=== PATIENT | female | born 1980 | race Caucasian/White ===

== ENCOUNTER 2017-02-12 18:08 | Emergency (ER) | payer OTHER ==
[2017-02-12] MEDS ORDERED: HYDROcodone/ACETAMIN 5-325 MG* 1 TAB PO ONE ×2 (20:02→20:50)
[2017-02-12 20:07] VITALS: BP 142/92
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
== END 2017-02-12 21:30 | disposition home or self-care (01) ==
LOC: UCEAST 18:08
DX: T23.102A Burn of first degree of left hand, unspecified site, initial encounter (principal); X12.XXXA Contact with other hot fluids, initial encounter; Y93.G3 Activity, cooking and baking; Y92.9 Unspecified place or not applicable; R03.0 Elevated blood-pressure reading, without diagnosis of hypertension; Z88.6 Allergy status to analgesic agent; F12.90 Cannabis use, unspecified, uncomplicated; F17.210 Nicotine dependence, cigarettes, uncomplicated
CPT/HCPCS: 99212; G0463

== ENCOUNTER 2018-02-28 12:02 | Emergency (ER) | payer OTHER ==
[2018-02-28] MEDS ORDERED: Ketorolac INJ* 30 MG/ML 1 ML VIAL IV PUSH ONE (12:34)
[2018-02-28] MEDS ORDERED: NS 0.9% 1000 ML* 1,000 ML IV ONE (12:34)
[2018-02-28 13:04] LABS: ABS Basophils 0 10^3/ul (0-0.2); ABS Eosinophils 0 10^3/ul (0-0.6); ABS Lymphocytes 0.4 10^3/ul (1.0-4.8); ABS Monocytes 0.5 10^3/ul (0-0.8); ABS Neutrophils 4.6 10^3/ul (1.5-7.7); ABS Nucleated RBC 0 10^3/ul; Eosinophil % 0.8 % (0-6); Hematocrit 41 % (35-47); Lymphocyte % 6.4 % (25-47); Mean Corpuscular HGB Conc 35 g/dl (31-36); Mean Corpuscular Hemoglobin 30 pg (27-31); Mean Corpuscular Volume 88 fL (80-97); Mean Platelet Volume 8.9 um3 (7.4-10.4); Nucleated Red Blood Cells % 0; Platelet Count 259 10^3/ul (150-450); Red Blood Count 4.61 10^6/ul (4.0-5.4); Red Cell Distribution Width 13 % (10.5-15); White Blood Count 5.5 10^3/ul (3.5-10.8)
[2018-02-28 13:29] LABS: EGFR Non-African American 96.8 (>60)
--- NOTE | 2018-02-28 13:29 | ED ---
GI/ HPI - HPI Summary HPI Summary: 37 year feel presents with a month's worth of right sided abdominal pain. She admits to diarrhea. She admits occasional nausea. She denies any vomiting. She denies any pain with urination. She has been having intermittent spotting for the past month. She states she had a history of MS. She states her primary had an ultrasound done transvaginal and gallbladder. She states she saw dr barnes as gallstones seen on u/s but dr barnes felt that gallstones r not causing her symptoms. States she has an apt on Sunday with ob as u/s showed fibroids. She states her vaginal discharge is dark brown and sometimes gel like. She states that she normally doesn't have pain at baseline or sensation but when she has pain it is intense. She denies any flank pain. She denies any fevers. She denies any chest pain or shortness breath. She has been taking Tylenol and ibuprofen for her symptoms. Has had a previous C- sections. She states the pain is more intense over the past couple days. - History of Current Complaint Chief Complaint: EDAbdPain Time Seen by Provider: 02/28/18 12:25 Stated Complaint: ABD PAIN Pain Intensity: 6 - Allergy/Home Medications Allergies/Adverse Reactions: Allergies Allergy/AdvReac Type Severity Reaction Status Date / Time aspirin Allergy See Comment Verified 02/28/18 12:34 Home Medications: Home Medications FLUoxetine CAP* [PROzac CAP*] 40 mg PO DAILY 02/28/18 [History Confirmed ] Fingolimod (NF) [Gilenya] 0.5 mg PO DAILY 02/28/18 [History Confirmed 02/28/18] Gabapentin CAP(*) [Neurontin 300 CAP(*)] 900 mg PO BEDTIME 02/28/18 [History Confirmed 02/28/18] Multivitamins/Minerals TAB* [Theragran/minerals TAB*] 1 tab PO DAILY 02/28/18 [ History Confirmed 02/28/18] Topiramate TAB(*) [Topamax 100 mg tab] 100 mg PO BID 02/28/18 [History Confirmed 02/28/18] tiZANidine TAB* [Zanaflex TAB*] 4 mg PO BEDTIME 02/28/18 [History Confirmed 11/05] PMH/Surg Hx/FS Hx/Imm Hx Endocrine/Hematology History: Denies: Hx Anticoagulant Therapy, Hx Diabetes Cardiovascular History: Denies: Hx Hypertension, Hx Pacemaker/ICD Respiratory History: Denies: Hx Asthma History: Denies: Hx Dialysis, Hx Renal Disease Musculoskeletal History: Reports: Other Musculoskeletal History - MS Sensory History: Reports: Hx Contacts or Glasses - DISTANT GLASSES Denies: Hx Hearing Aid Opthamlomology History: Reports: Hx Contacts or Glasses - DISTANT GLASSES Neurological History: Reports: Hx Migraine, Other Neuro Impairments/Disorders - MS Psychiatric History: Denies: Hx Panic Disorder - Surgical History Surgery Procedure, Year, and Place: TWO C-SECTIONS; TUBAL LIGATION; TONSILS A CHILD; TUBES IN EARS CHILD; 03/31/15 UTERINE ABLATION. LASIK EYE SURGERY FOR CORRECTIVE VISION Hx Anesthesia Reactions: No Infectious Disease History: No Infectious Disease History: Denies: Traveled Outside the [place] in Last 30 Days - Family History Known Family History: Negative: Diabetes - Social History Alcohol Use: Occasionally Substance Use Type: Reports: None Substance Use Comment - Amount & Last Used: medical marijuana program for [place] Smoking Status (MU): Former Smoker Type: Cigarettes Amount Used/How Often: 2-3 CIGARETTE PER DAY Length of Time of Smoking/Using Tobacco: 5 YEARS Have You Smoked in the Last Year: No Review of Systems Negative: Fever Negative: Chest Pain Negative: Shortness Of Breath Positive: Abdominal Pain, Diarrhea, Nausea. Negative: Vomiting All Other Systems Reviewed And Are Negative: Yes Physical Exam Triage Information Reviewed: Yes Vital Signs On Initial Exam: Initial Vitals Temp Pulse Resp BP Pulse Ox 98.6 F 66 20 155/83 100 02/28/18 12:09 02/28/18 12:09 02/28/18 12:09 02/28/18 12:09 02/28/18 12:09 Vital Signs Reviewed: Yes Appearance: Positive: Well-Appearing Skin: Positive: Warm, Dry Head/Face: Positive: Normal Head/Face Inspection Eyes: Positive: Normal, Conjunctiva Clear Respiratory/Lung Sounds: Positive: Clear to Auscultation, Breath Sounds Present Cardiovascular: Positive: Normal, RRR Abdomen Description: Positive: Soft, Other: - tenderness in RUQ and RLQ Bowel Sounds: Positive: Present Musculoskeletal: Positive: Normal Neurological: Positive: Normal Psychiatric: Positive: Normal Diagnostics - Vital Signs Vital Signs Temp Pulse Resp BP Pulse Ox 02/28/18 13:00 56 133/71 100 02/28/18 12:49 57 100 02/28/18 12:47 127/76 02/28/18 12:09 98.6 F 66 20 155/83 100 - Laboratory Lab Results: Lab Results 02/28/18 Range/Units 12:50 WBC 5.5 (3.5-10.8) 10^3/ul RBC 4.61 (4.0-5.4) 10^6/ul Hgb 14.0 (12.0-16.0) g/dl Hct 41 (35-47) % MCV 88 (80-97) fL MCH 30 (27-31) pg MCHC 35 (31-36) g/dl RDW 13 (10.5-15) % Plt Count 259 (150-450) 10^3/ul MPV 8.9 (7.4-10.4) um3 Neut % (Auto) 83.1 H (38-83) % Lymph % (Auto) 6.4 L (25-47) % Kings % (Auto) 9.2 H (0-7) % Eos % (Auto) 0.8 (0-6) % Baso % (Auto) 0.5 (0-2) % Absolute Neuts (auto) 4.6 (1.5-7.7) 10^3/ul Absolute Lymphs (auto) 0.4 L (1.0-4.8) 10^3/ul Absolute Monos (auto) 0.5 (0-0.8) 10^3/ul Absolute Eos (auto) 0 (0-0.6) 10^3/ul Absolute Basos (auto) 0 (0-0.2) 10^3/ul Absolute Nucleated RBC 0 10^3/ul Nucleated RBC % 0 Result Diagrams: 02/28/18 12:50 02/28/18 12:50 Lab Statement: Any lab studies that have been ordered have been reviewed, and results considered in the medical decision making process. - Ultrasound No standard instances Ultrasound Interpretation: Positive (See Comments) - IMPRESSION: CHOLELITHIASIS , UNCHANGED Ultrasound Interpretation Completed By: Radiologist MOHIT Course/Dx - Course Course Of Treatment: 37 year feel presents with a month's worth of right sided abdominal pain. She admits to diarrhea. She admits occasional nausea. She denies any vomiting. She denies any pain with urination. She has been having intermittent spotting for the past month. She states she had a history of MS. She states her primary had an ultrasound done transvaginal and gallbladder. She states she saw dr barnes as gallstones seen on u/s but dr barnes felt that gallstones r not causing her symptoms. States she has an apt on Sunday with ob as u/s showed fibroids. She states her vaginal discharge is dark brown and sometimes gel like. She states that she normally doesn't have pain at baseline or sensation but when she has pain it is intense. She denies any flank pain. She denies any fevers. She denies any chest pain or shortness breath. She has been taking Tylenol and ibuprofen for her symptoms. Has had a previous C- sections. She states the pain is more intense over the past couple days. on exam tenderness RUQ and RLQ. labs wbc and crp normal. urine normal. u/s shows gallstones and fibriods. explained probably a combination of both causing pain. due to suspect anything else such as appendicitis as wbc and crp normal. will give pain medication and have follow up with ob about fibriods and surgery again about gallstones. patient understand and agrees with plan. - Diagnoses Differential Diagnoses - Female: Appendicitis, Gall Bladder Disease, Ovarian Cyst, Urinary Tract Infection Provider Diagnoses: Abdominal pain, Uterine fibroid, Gallstones Discharge - Sign-Out/Discharge Documenting (check all that apply): Discharge - Discharge Plan Condition: Good Disposition: HOME Prescriptions: traMADol TAB* [Ultram*] 25 mg PO Q8H PRN #12 tab MDD 3 PRN Reason: Pain Patient Education Materials: Biliary Colic (ED) Referrals: Charis Henry NP [Primary Care Provider] - Timmy Barnes MD [Medical Doctor] - Additional Instructions: Follow up with ob to discuss control options for fibriods Take Tylenol or ibuprofen every 6 hours, use tramadol every 8 hours for breakthrough pain as needed Follow up with surgery Maintain a healthy diet, avoid high fatty foods Return to ED if develop any new or worsening symptoms - Billing Disposition and Condition Condition: GOOD Disposition: HOME
[2018-02-28 13:31] LABS: Urine Appearance Cloudy; Urine Blood Negative (Negative); Urine Color Yellow; Urine Ketones Negative (Negative); Urine Protein Negative (Negative); Urine Specific Gravity 1.016 (1.010-1.030); Urine Urobilinogen Positive (Negative)
--- NOTE | 2018-02-28 14:04 | RAD ---
HISTORY: Right lower quadrant pain COMPARISONS: February 15, 2018 TECHNIQUE: Multiple transverse and longitudinal ultrasound images were obtained of the pelvis using grayscale, color Doppler, and spectral Doppler imaging using the endovaginal transducer. FINDINGS: The study is limited by patient bowel gas. UTERUS: The uterus measures 7 x 4 x 4.9 cm. The uterus is heterogeneous in echotexture. There is a myometrial fibroid noted along the posterior body measuring 1 x 1.1 x 0.8 cm. Multiple cervical liver consistent noted. ENDOMETRIUM: The endometrial stripe is smooth. The endometrium measures 0.5 cm in thickness. CUL-DE-SAC: There is no free fluid within the cul-de-sac. RIGHT OVARY: The right ovary measures 2.6 x 1.5 x 1.8 cm. Normal arterial and venous waveforms are identifiable within the ovary on spectral Doppler imaging. LEFT OVARY: The left ovary measures 2.6 x 1.6 x 1.7 cm. Normal arterial and venous waveforms are identifiable within the ovary on spectral Doppler imaging. BLADDER: The bladder is not well visualized. OTHER: None IMPRESSION: FIBROID UTERUS. NO SONOGRAPHIC FEATURES OF TORSION. PLEASE NOTE THAT PARTIAL OR INTERMITTENT TORSION MAY BE SONOGRAPHICALLY NORMAL.
--- NOTE | 2018-02-28 14:10 | RAD ---
INDICATION: Right upper quadrant pain COMPARISON: Gallbladder sonogram February 15, 20182017 TECHNIQUE: Longitudinal and transverse scans of the right upper quadrant were obtained. Doppler interrogation of the hepatic and portal venous system was performed. FINDINGS: Liver: The liver is normal in size and echogenicity. There are no focal masses. The liver measures 16.4 cm in cephalocaudal dimension. Vessels: There is normal hepatic and portal venous flow. Bile ducts: There is no evidence of intrahepatic or extrahepatic ductal dilatation. The common duct measures 0.3 cm. Gallbladder: There is again evidence of cholelithiasis as recently documented in January 2018. There is no evidence of thickening of the gallbladder wall or pericholecystic fluid. The patient was not tender over the gallbladder. Pancreas: The visualized pancreas appears normal Right kidney: The right kidney is normal in size and echogenicity. There are no masses or calculi. There is no evidence of hydronephrosis. The right kidney measures 10.8 x 4.7 x 4.9 cm. IVC and aorta: The aorta and superior vena cava appear normal. Fluid: There is no ascites. Other: None. IMPRESSION: CHOLELITHIASIS, UNCHANGED
[2018-02-28 14:14] VITALS: BP 116/61
== END 2018-02-28 14:53 | disposition home or self-care (01) ==
LOC: ED 12:02
DX: R10.11 Right upper quadrant pain (principal); R10.31 Right lower quadrant pain; D25.9 Leiomyoma of uterus, unspecified; K80.20 Calculus of gallbladder without cholecystitis without obstruction; G35 Multiple sclerosis; Z87.891 Personal history of nicotine dependence; R19.7 Diarrhea, unspecified
CPT/HCPCS: 36415; 76705; 76830; 80053; 81003; 83690; 84702; 85025; 86141; 96360; 96374; 99283; J1885